=== PATIENT | male | born 1995 | race Caucasian/White ===

== ENCOUNTER 2017-07-01 22:20 | Emergency (ER) | payer BC, OTHER ==
[2017-07-01 22:24] VITALS: BP 129/71; PULSE 115; TEMP 97; BMI 21.1
[2017-07-01] MEDS ORDERED: IBUPROFEN 600 MG TABLET (FP) PO ONE ×2 (22:44→22:52)
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
[2017-07-01] MEDS ORDERED: AMOX TR/POT CLAV 875MG/125MG TABLETS (FP) PO ONE (23:24)
[2017-07-01] MEDS ORDERED: AMOX TR/POT CLAV 875MG/125MG TABLETS (FP) ONE (23:31)
[2017-07-01] MEDS ORDERED: TETANUS AND DIPHTHERIA TOXOID 0.5 ML DISP.SYRIN IM ONE (23:47)
== END 2017-07-02 00:03 | disposition home or self-care (01) ==
LOC: JER 22:20
PROC: 3E0234Z Introduction of Serum, Toxoid and Vaccine into Muscle, Percutaneous Approach (ICD-10-PCS; principal; 2017-07-01)
DX: S60.371A Other superficial bite of right thumb, initial encounter (principal); Y04.1XXA Assault by human bite, initial encounter; Y93.89 Activity, other specified; Y92.89 Other specified places as the place of occurrence of the external cause; Y99.8 Other external cause status
CPT/HCPCS: 73130-TC-RT; 99283-25

== ENCOUNTER 2017-10-01 13:40 | Emergency (ER) | payer OTHER ==
[2017-10-01 13:52] VITALS: BP 109/75; PULSE 75; TEMP 97.8; BMI 21.1
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
== END 2017-10-01 15:11 | disposition home or self-care (01) ==
LOC: JER 13:40
DX: S80.11XA Contusion of right lower leg, initial encounter (principal); W51.XXXA Accidental striking against or bumped into by another person, initial encounter; Y93.23 Activity, snow (alpine) (downhill) skiing, snowboarding, sledding, tobogganing and snow tubing; Y92.89 Other specified places as the place of occurrence of the external cause; Y99.8 Other external cause status
CPT/HCPCS: 73590-TC-RT; 99281-25

== ENCOUNTER 2018-03-14 12:14 | Emergency (ER) | payer OTHER ==
[2018-03-14 12:30] VITALS: BP 123/66; PULSE 93; TEMP 98.6; BMI 20.4
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
== END 2018-03-14 14:23 | disposition home or self-care (01) ==
LOC: JERFT 12:14
PROC: 2W3QX1Z Immobilization of Right Lower Leg using Splint (ICD-10-PCS; principal; 2018-03-14)
DX: S83.91XA Sprain of unspecified site of right knee, initial encounter (principal); V19.3XXA Pedal cyclist (driver) (passenger) injured in unspecified nontraffic accident, initial encounter; Y93.55 Activity, bike riding; Y92.89 Other specified places as the place of occurrence of the external cause; Z87.891 Personal history of nicotine dependence
CPT/HCPCS: 73562-TC-RT-FY; 99282-25

== ENCOUNTER 2019-06-30 05:24 | Emergency (ER) | payer OTHER ==
[2019-06-30 05:40] VITALS: BMI 21.7
--- NOTE | 2019-06-30 05:54 | PDOC ---
Attending Attestation - Resident Resident Name: Mushtaq Claros - ED Attending Attestation I have performed the following: I have examined & evaluated the patient, The case was reviewed & discussed with the resident, I agree w/resident's findings & plan - HPI HPI: 06/30/19 06:53 Pt states that he injured his right hand and he was seen in a [place] ER ([facility]) and there he was sent home after some pain meds. He comes here for treatment of his fracture of 4th metacarpal and dislocation of the 4th and 5th metacarpal heads. - Physicial Exam PE: 07/01/19 06:30 Pt has swelling of the 4th and 5th fingers and ulnar aspect of his right hand Pt maintains movement in the hand - Medical Decision Making 07/01/19 06:31 XR hand shows fracture and dislocation of the 4th and 5th metacarpals and he will be signed out to the day ER docs.
--- NOTE | 2019-06-30 07:24 | PDOC ---
*Physical Exam - Vital Signs Last Vital Signs Temp Pulse Resp BP Pulse Ox 97.2 F L 74 20 134/89 100 06/30/19 05:38 06/30/19 05:38 06/30/19 05:38 06/30/19 05:38 06/30/19 05:38 ED Treatment Course - Medications Given in the ED: ED Medications Discontinued Medications Generic Name Dose Route Start Last Admin Trade Name Freq PRN Reason Stop Dose Admin Oxycodone/Acetaminophen 1 combo 06/30/19 06:12 06/30/19 06:28 Percocet 5/325 - PO 06/30/19 06:13 1 combo ONCE ONE Administration Medical Decision Making - Medical Decision Making Sign out received by Dr. Claros. 23 y/o M with hx prior fractures p/w oblique fracture of proximal 4th metacarpal , displacement of 5th metacarpal after punching a punching bag. Evaluated at [facility] in [facility] before arrival here. Ortho consult pending. 06/30/19 09:42 Case discussed with PA for Dr. Young. After review of images, they feel he will require surgery. Plan for ulnar gutter splinting, discharge from ED with follow up with Dr. Young tomorrow at 12 noon. --- Ulnar gutter placed, pulses remain equal bilaterally, normal sensation in bilateral hands, motion of fingertips intact. Plan for discharge home. *DC/Admit/Observation/Transfer Diagnosis at time of Disposition: Closed dislocation of fifth metacarpal bone of right hand Fracture of fourth metacarpal bone of right hand Qualifiers: Encounter type: initial encounter Fracture type: closed Fracture morphology: unspecified fracture morphology Qualified Code(s): S62.304A - Unspecified fracture of fourth metacarpal bone, right hand, initial encounter for closed fracture - Discharge Dispostion Disposition: HOME Condition at time of disposition: Stable Decision to Admit order: No - Referrals Referrals: Denny Young MD [Staff Physician] - - Patient Instructions Printed Discharge Instructions: DI for a Hand Fracture Additional Instructions: You were seen in the emergency department for a hand fracture. We evaluated your fracture and discussed with orthopedics (bone doctors). You will likely need surgery - please follow up with Dr. Young (Bone doctor) tomorrow at 12noon at his office. Make sure that you keep the appointment with him tomorrow. We placed a splint on your right hand - please keep it in place until your appointment tomorrow, and keep the splint dry, cover it with a plastic bag in the shower. Please return to the emergency department if you develop numbness or lose feeling in your hand. - Post Discharge Activity
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
[2019-06-30 09:19] VITALS: BP 146/96; PULSE 67; TEMP 98
== END 2019-06-30 09:35 | disposition home or self-care (01) ==
LOC: JER 05:24
PROC: 2W3CX1Z Immobilization of Right Lower Arm using Splint (ICD-10-PCS; principal; 2019-06-30)
DX: S62.304D Unspecified fracture of fourth metacarpal bone, right hand, subsequent encounter for fracture with routine healing (principal); S63.266D Dislocation of metacarpophalangeal joint of right little finger, subsequent encounter; Y93.71 Activity, boxing
CPT/HCPCS: 73130-TC-RT-FY; 99282-25

== ENCOUNTER 2019-07-03 05:06 | Day surgery (SDC) | payer OTHER ==
[2019-07-02 09:56] VITALS: BMI 21.7
--- NOTE | 2019-07-03 09:01 | HP ---
Satellite [facility] - Chief Complaint Chief Complaint: right hand pain History of Present Illness: right hand pain, injured while boxing/sparring History Source: Patient Limitations to Obtaining History: No Limitations - Past Medical History Allergies/Adverse Reactions: Allergies Allergy/AdvReac Type Severity Reaction Status Date / Time No Known Allergies Allergy Verified 07/02/19 09:58 - Current Medications Current Medications: Home Medications Medication Instructions Recorded NK [No Known Home Medication] 07/02/19 Satellite Physical Exam - Physical Examination General Appearance: Well Nourished ENT: Clear Lung: Clear to auscultation Heart: Regular rate & rhythm Breasts: Soft Abdomen: Soft Extremities: No edema Satellite Impression/Plan - Impression/Plan Impression: right 4th and 5th metacarpal fractures, CMC dislocations Operative Procedure: right 4th and 5th MC fx/dislocation ORIF Date to be Performed: 07/03/19
[2019-07-03] MEDS ORDERED: DEXAMETHASONE SOD PHOSPHATE/PF 10 MG/ML SDV ONE (12:34)
[2019-07-03] MEDS ORDERED: MIDAZOLAM HCL 2 MG/2 ML SINGLE DOSE VIAL ONE ×2 (12:34)
[2019-07-03] MEDS ORDERED: BUPIVACAINE HCL/PF 0.5% (5 MG/ML) 30 ML VIAL IJ ONE (12:34)
[2019-07-03] MEDS ORDERED: ceFAZolin SODIUM 1 GM VIAL IVPB ONE (13:29)
[2019-07-03] MEDS ORDERED: PROPOFOL 20 ML ONE (13:39)
[2019-07-03] MEDS ORDERED: ONDANSETRON 4 MG/2 ML VIAL IVPUSH PRN (13:56)
[2019-07-03] MEDS ORDERED: oxyCODONE HCL 5 MG TABLET PO PRN (13:56)
[2019-07-03] MEDS ORDERED: LACTATED RINGERS SOLUTION 1,000 ML IV SCH (14:00)
--- NOTE | 2019-07-03 14:27 | OP ---
Operative Note - Note: Operative Date: 07/03/19 Pre-Operative Diagnosis: right hand 4th and 5th CMC joint dislocations, and fractures Operation: ORIF right 4th and 5th Metacarpal fractures and dislocations Implants: 4 x 0.062" K-wires Surgeon: Denny Young Anesthesiologist/COLD WATER MACHINE OPERATOR: Adeola Galindo Anesthesia: General Estimated Blood Loss (mls): 0 Drains, Volume Out (mls): 0 Blood Volume Replaced (mls): 0 Fluid Volume Replaced (mls): 700 Operative Report Dictated: Yes
[2019-07-03 15:38] VITALS: TEMP 97.7
[2019-07-03 16:14] VITALS: BP 118/61; PULSE 71
--- NOTE | 2019-07-03 16:14 | SPEC ---
DATE OF OPERATION: 07/03/2019 PREOPERATIVE DIAGNOSIS: Fracture, dislocation 4th and 5th metacarpal, right hand. POSTOPERATIVE DIAGNOSIS: Fracture, dislocation 4th and 5th metacarpal, right hand. PROCEDURE: Open reduction internal fixation right 4th and 5th metacarpals and carpometacarpal joint. SURGEON: Mario Langford MD INTERNATIONAL TRADE TEACHER: None. ANESTHESIA: KINZA Diana, right interscalene block, LMA anesthesia. DRAINS: None. COMPLICATIONS: None. SPECIMENS: None. BLOOD LOSS: None. BLOOD GIVEN: None. FLUID REPLACEMENT: 500 mL PlasmaLyte. 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 After understanding the potential risks, complications, alternatives, and benefits to surgery versus nonsurgical treatment, he and his family member (his mother) elected to go forward with this procedure. 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 They understand that these and other potential risks and complications were discussed and would like to go forward with surgery. DESCRIPTION OF PROCEDURE: The patient was brought to the operating room. Peripheral IV place. IV sedation given, 2 g of IV Ancef were given. Right interscalene block was performed. LMA anesthesia was induced. He was placed into the supine position. The right upper extremity was prepped and draped in a sterile fashion, elevated, exsanguinated with Esmarch bandage. Tourniquet inflated to 250 mmHg. I did a provisional reduction. Used a mini C-arm to document reduction of the dislocated 4th and 5th CMC joints. I then did several additional reduction maneuvers into reduce the fracture at the base of the 4th and 5th metacarpals. Then I used 0.062 K-wires to pin the 4th to the 5th metacarpal and the base of the 4th metacarpal to the carpus and the base of the 5th metacarpal to the carpus. I used 2 transmetacarpal pins for a total of 4 pins. Overall, it all came together quite nicely. The 5th was stabilized to the carpus, the 4th to the carpus, and the 4th and 5th to each other. The reduction was quite good, and these should hold the, otherwise, unstable CMC joints in position. Final x-rays were taken. The area was washed, dried. The pins were bent, cut, and pin caps applied. Xeroform was placed to the base of the pins. It was then wrapped with sterile gauze, Webril, and a volar 4-inch Ortho-Glass splint was applied, wrapped with a Amari and Coban. No tourniquet was used during this case. The total operative time was about 25 minutes. There were no complications during the case. MARIO LANGFORD M.D. [id number]
== END 2019-07-03 16:10 | disposition home or self-care (01) ==
LOC: JASU-SURG 05:06
PROVIDERS: ATTEND Orthopaedic Surgery
PROC: 0PSP04Z Reposition Right Metacarpal with Internal Fixation Device, Open Approach (ICD-10-PCS; 2019-07-03)
PROC: 0PSM04Z Reposition Right Carpal with Internal Fixation Device, Open Approach (ICD-10-PCS; 2019-07-03)
PROC: 0PSP04Z Reposition Right Metacarpal with Internal Fixation Device, Open Approach (ICD-10-PCS; principal; 2019-07-03 11:30)
DX: S62.304A Unspecified fracture of fourth metacarpal bone, right hand, initial encounter for closed fracture (principal); S62.306A Unspecified fracture of fifth metacarpal bone, right hand, initial encounter for closed fracture; S63.054A Dislocation of other carpometacarpal joint of right hand, initial encounter; X58.XXXA Exposure to other specified factors, initial encounter; Y93.9 Activity, unspecified; Y92.9 Unspecified place or not applicable; Y99.9 Unspecified external cause status
CPT/HCPCS: 73130-TC-RT-FY; 76000-TC-FY; 94760

== ENCOUNTER 2020-09-27 16:40 | Emergency (ER) | payer OTHER ==
[2020-09-27 16:45] VITALS: BP 140/88; PULSE 116; TEMP 97.2; BMI 21.7
== END 2020-09-27 18:23 | disposition home or self-care (01) ==
LOC: JERFT 16:40
DX: S43.102A Unspecified dislocation of left acromioclavicular joint, initial encounter (principal)
CPT/HCPCS: 73000-TC-LT-FY; 73030-TC-LT-FY; 99284-25

== ENCOUNTER 2021-06-05 01:55 | Emergency (ER) | payer OTHER ==
[2021-06-05] MEDS ORDERED: DIPHTH,PERTUSS(ACELL),TET 0.5 ML DISP.SYRIN IM ONE (02:02)
[2021-06-05] MEDS ORDERED: SODIUM CHLORIDE 0.9% 500 ML INFUS.BAG IV ONE (02:17)
[2021-06-05 02:24] VITALS: TEMP 97.6; BMI 21.8
[2021-06-05 02:59] LABS: BASO % 0.6 % (0-2.0); EOS % 2.2 % (0-4.5); HEMATOCRIT 42.1 % (35.4-49); HEMOGLOBIN 14.6 GM/dL (11.7-16.9); LYMPH % 30.2 % (8-40); MCH 33.9 pg (25.7-33.7); MCHC 34.7 g/dl (32.0-35.9); MEAN CELL VOLUME 97.6 fl (80-96); MEAN PLT VOLUME 8.7 fl (7.5-11.1); MONO % 7.4 % (3.8-10.2); NEUT % 59.6 % (42.8-82.8); PLATELET COUNT 279 10^3/uL (134-434); RBC 4.31 M/mm3 (4.00-5.60); RDW 13.1 % (11.9-15.9); WHITE BLOOD COUNT 10.1 K/mm3 (4.0-10.0)
[2021-06-05 03:14] LABS: INR 1.03 (0.83-1.09); PROTHROMBIN TIME (PATIENT) 12.6 SEC (9.7-13.0)
[2021-06-05 03:16] LABS: ACTIVATED PTT 26.6 SECONDS (25.2-36.5)
[2021-06-05 03:20] LABS: ALBUMIN 4.2 g/dl (3.4-5.0); CALCIUM 8.9 mg/dL (8.5-10.1)
[2021-06-05 03:22] LABS: BLOOD UREA NITROGEN 8.9 mg/dL (7-18)
[2021-06-05 03:25] LABS: BILIRUBIN,TOTAL 0.3 mg/dL (0.2-1)
[2021-06-05 03:54] VITALS: BP 128/67; PULSE 92
== END 2021-06-05 03:55 | disposition short-term general hospital (02) ==
LOC: JER 01:55
DX: S61.512A Laceration without foreign body of left wrist, initial encounter (principal); W25.XXXA Contact with sharp glass, initial encounter; Y28.0XXA Contact with sharp glass, undetermined intent, initial encounter
CPT/HCPCS: 36415; 73090-TC-LT-FY; 80053; 85025; 85610; 85730; 86850; 86900; 86901; 93005; 93010; 99285-25; C9803; U0003; U0005